=== PATIENT | male | born 1995 ===

== ENCOUNTER 2018-10-11 20:19 | Emergency (ER) | payer OTHER ==
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
[2018-10-11] MEDS ORDERED: TYLENOL PO ONE (23:20)
[2018-10-11] MEDS ORDERED: IBUPROFEN PO ONE (23:20)
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
[2018-10-12 01:30] VITALS: BP 128/82
== END 2018-10-12 01:00 | disposition home or self-care (01) ==
LOC: ED 20:19
DX: S63.501A Unspecified sprain of right wrist, initial encounter (principal); M62.838 Other muscle spasm; F17.200 Nicotine dependence, unspecified, uncomplicated; V49.59XA Passenger injured in collision with other motor vehicles in traffic accident, initial encounter; Y93.89 Activity, other specified; Y92.488 Other paved roadways as the place of occurrence of the external cause; Y99.8 Other external cause status